=== PATIENT | female | born 2000 | race Caucasian/White ===

== ENCOUNTER → 2018-09-10 | Outpatient (CLI) | payer OTHER ==
--- NOTE | 2018-09-10 18:35 | US ---
EXAMINATION TYPE: Ultrasound OB <= 14 week fetus DATE OF EXAM: 09/10/2018 2:58 PM COMPARISON: NONE CLINICAL HISTORY: 18-year-old female Z36 Confirm Dates. Confirm Dates, pt has no complaints at this t kortney EXAM PERFORMED: Transabdominal (TA) FINDINGS: EXAM MEASUREMENTS: GESTATIONAL AGE / DATING Physician Established: (12 weeks/3 days) EDC: 03/22/2019 Dates by LMP: (12 weeks/3 days) EDC: 03/22/2019 Dates by First Scan: No prior Dates by Current Scan for: (12 weeks/1 days +/- 1 week 1 day) EDC: 03/24/2019 MATERNAL ANATOMY Uterus: 13.4 x 5.3 x 9.1 Right Ovary: 3.5 x 2.4 x 2.3 cm Left Ovary: 3.3 x 1.9 x 2.0 cm Post CDS / Adnexa: wnl Presence of free fluid: No Presence of subchorionic bleed: No GESTATION / SURVEY CRL: 5.5 cm (12 weeks/1 days) MSD: wnl Heart Rate: 160 bpm Rhythm: Normal IUP: Viable IUP Signing Teacher notes:Single, viable IUP/ No abnormality visualized at this time IMPRESSION: 1. Single live intrauterine with estimated gestational age of 12 weeks 3 days by LMP. Curre nt ultrasound biometry is concordant (12 weeks 1 day). 2. Complete survey recommended at 18-20 weeks.
== END | disposition home or self-care (01) ==
LOC: RADUSWWP 14:37
PROVIDERS: ATTEND Obstetrics & Gynecology
DX: Z36.9 Encounter for antenatal screening, unspecified (principal); Z3A.12 12 weeks gestation of pregnancy
CPT/HCPCS: 76801

== ENCOUNTER 2018-12-06 05:13 | Emergency (ER) | payer OTHER ==
[2018-12-06 05:30] VITALS: TEMP 97.6
[2018-12-06] MEDS ORDERED: SODIUM CHLORIDE 0.9% 500 ML 500 ML IV STA (07:22)
[2018-12-06] MEDS ORDERED: SODIUM CHLORIDE 0.9% 1,000 ML IV STA (07:24)
--- NOTE | 2018-12-06 07:36 | ED ---
General Adult HPI - General Chief complaint: Shortness of Breath Stated complaint: SOB,vomiting 24 wks preg Time Seen by Provider: 12/06/18 07:06 Source: patient, RN notes reviewed Mode of arrival: ambulatory Limitations: no limitations - History of Present Illness Initial comments: 18-year-old female presents to the emergency department for multiple complaints. Patient is currently a currently 24 weeks . Patient states that she woke up last night and felt off. States she felt like her eyes were crossed and she was a little fuzzy. States she was nauseous and had 1 episode of vomiting. States she also had some shortness of breath with chest tightness. She describes as shortness of breath as well as feeling like she could not get enough air. She did not have any chest pain. She denies cough or fever. States she has not had these symptoms before. Denies any leg swelling or recent travel.patient denies any vaginal bleeding or abdominal pain or cramping. Patient has no other complaints at this time including chest pain, abdominal pain, nausea or vomiting, headache, or visual changes. - Related Data Home Medications Medication Instructions Recorded Confirmed Jyk-Cgnq-Wyhzi Acid 1 cap PO DAILY 12/06/18 12/06/18 [-U Capsule (formulary)] Previous Rx's Medication Instructions Recorded Cephalexin [Keflex] 500 mg PO TID 5 Days #12 cap 12/06/18 Allergies Allergy/AdvReac Type Severity Reaction Status Date / Time No Known Allergies Allergy Verified 12/06/18 05:30 Review of Systems ROS Statement: Those systems with pertinent positive or pertinent negative responses have been documented in the HPI. ROS Other: All systems not noted in ROS Statement are negative. Past Medical History Past Medical History: No Reported History History of Any Multi-Drug Resistant Organisms: None Reported Past Surgical History: Adenoidectomy, Tonsillectomy Past Psychological History: No Psychological Hx Reported Smoking Status: Never smoker Past Alcohol Use History: None Reported Past Drug Use History: None Reported General Exam Limitations: no limitations General appearance: alert, in no apparent distress Head exam: Present: atraumatic, normocephalic, normal inspection Eye exam: Present: normal appearance, PERRL, EOMI. Absent: scleral icterus, conjunctival injection, periorbital swelling ENT exam: Present: normal exam, mucous membranes moist Neck exam: Present: normal inspection, full ROM. Absent: tenderness, meningismus, lymphadenopathy Respiratory exam: Present: normal lung sounds bilaterally. Absent: respiratory distress, wheezes, rales, rhonchi, stridor Cardiovascular Exam: Present: regular rate, normal rhythm, normal heart sounds. Absent: systolic murmur, diastolic murmur, rubs, gallop, clicks GI/Abdominal exam: Present: soft, normal bowel sounds. Absent: distended, guarding, rebound, rigid Neurological exam: Present: alert, oriented X3, CN II-XII intact Psychiatric exam: Present: normal affect, normal mood Course Vital Signs 12/06/18 05:26 Temperature 97.6 F Pulse Rate 76 Respiratory 20 Rate Blood Pressure 132/73 O2 Sat by Pulse 98 Oximetry EKG Findings - EKG Comments: EKG Findings:: Normal sinus rhythm, ventricular rate 65, NH interval 154, QTc 403 Medical Decision Making - Medical Decision Making 18-year-old female currently 24 weeks presents to the emergency department for multiple complaints. Patient states she just felt a little off when she woke up last night. States she was a little fuzzy and dizzy. States she was nauseous and had a 1 episode of vomiting. States she also like she could not get enough air and had some chest tightness. Denies any pain. Denies any headache. On presentation patient is well-appearing. She is resting comfortably. No respiratory distress. Vitals are stable, patient is 90% on room air with a heart rate of 76. Physical exam is unremarkable. EKG shows a normal sinus rhythm with a ventricular rate of 65. CBC and CMP are unremarkable. Troponin negative. Ultrasound of the bilateral lower extremity showed no sonographic evidence for DVT within either lower extremity. Chest x- ray shows no acute cardiopulmonary process. No opacity, pleural effusion or pneumothorax. Urine does show evidence of urinary tract infection with 17 white blood cells. Patient will be treated for this. Patient reevaluated, feeling back to her normal self at this time except for feeling somewhat tired as she has been up since early this morning. Patient requesting discharge home. Patient will be discharged however recommended following up with OB. Recommended return if patient has any worsening shortness of breath or any vaginal bleeding or abdominal pain. - Lab Data Result diagrams: 12/06/18 05:50 12/06/18 05:50 Lab Results 12/06/18 12/06/18 12/06/18 Range/Units 05:50 05:50 05:50 WBC 9.0 (4.0-11.0) k/uL RBC 3.64 L (3.80-5.40) m/uL Hgb 11.9 (11.4-16.0) gm/dL Hct 33.1 L (34.0-46.0) % MCV 90.8 (80.0-100.0) fL MCH 32.6 (25.0-35.0) pg MCHC 35.9 (31.0-37.0) g/dL RDW 13.9 (11.5-15.5) % Plt Count 160 (150-450) k/uL Neutrophils % 74 % Lymphocytes % 18 % Monocytes % 5 % Eosinophils % 1 % Basophils % 0 % Neutrophils # 6.6 (1.3-7.7) k/uL Lymphocytes # 1.6 (1.0-4.8) k/uL Monocytes # 0.5 (0-1.0) k/uL Eosinophils # 0.1 (0-0.7) k/uL Basophils # 0.0 (0-0.2) k/uL PT 9.5 (9.0-12.0) sec INR 0.9 (<1.2) APTT 22.6 (22.0-30.0) sec Sodium 140 (137-145) mmol/L Potassium 3.8 (3.5-5.1) mmol/L Chloride 106 (98-107) mmol/L Carbon Dioxide 23 (22-30) mmol/L Anion Gap 11 mmol/L BUN 8 (7-17) mg/dL Creatinine 0.53 (0.52-1.04) mg/dL Est GFR (CKD-EPI)AfAm >90 (>60 ml/min/1.73 sqM) Est GFR (CKD-EPI)NonAf >90 (>60 ml/min/1.73 sqM) Glucose 80 (74-99) mg/dL Calcium 9.2 (8.4-10.2) mg/dL Magnesium 1.6 (1.6-2.3) mg/dL Total Bilirubin 0.2 (0.2-1.3) mg/dL AST 16 (14-36) U/L ALT 15 (9-52) U/L Alkaline Phosphatase 45 (38-126) U/L Troponin I (0.000-0.034) ng/mL Total Protein 6.3 (6.3-8.2) g/dL Albumin 3.8 (3.5-5.0) g/dL Urine Color Urine Appearance (Clear) Urine pH (5.0-8.0) Ur Specific [place] (1.001-1.035) Urine Protein (Negative) Urine Glucose (UA) (Negative) Urine Ketones (Negative) Urine Blood (Negative) Urine Nitrite (Negative) Urine Bilirubin (Negative) Urine Urobilinogen (<2.0) mg/dL Ur Leukocyte Esterase (Negative) Urine RBC (0-5) /hpf Urine WBC (0-5) /hpf Ur Squamous Epith Cells (0-4) /hpf Urine Bacteria (None) /hpf Urine Mucus (None) /hpf Urine HCG, Qual (Not Detectd) 12/06/18 12/06/18 12/06/18 Range/Units 05:50 05:50 05:50 WBC (4.0-11.0) k/uL RBC (3.80-5.40) m/uL Hgb (11.4-16.0) gm/dL Hct (34.0-46.0) % MCV (80.0-100.0) fL MCH (25.0-35.0) pg MCHC (31.0-37.0) g/dL RDW (11.5-15.5) % Plt Count (150-450) k/uL Neutrophils % % Lymphocytes % % Monocytes % % Eosinophils % % Basophils % % Neutrophils # (1.3-7.7) k/uL Lymphocytes # (1.0-4.8) k/uL Monocytes # (0-1.0) k/uL Eosinophils # (0-0.7) k/uL Basophils # (0-0.2) k/uL PT (9.0-12.0) sec INR (<1.2) APTT (22.0-30.0) sec Sodium (137-145) mmol/L Potassium (3.5-5.1) mmol/L Chloride (98-107) mmol/L Carbon Dioxide (22-30) mmol/L Anion Gap mmol/L BUN (7-17) mg/dL Creatinine (0.52-1.04) mg/dL Est GFR (CKD-EPI)AfAm (>60 ml/min/1.73 sqM) Est GFR (CKD-EPI)NonAf (>60 ml/min/1.73 sqM) Glucose (74-99) mg/dL Calcium (8.4-10.2) mg/dL Magnesium (1.6-2.3) mg/dL Total Bilirubin (0.2-1.3) mg/dL AST (14-36) U/L ALT (9-52) U/L Alkaline Phosphatase (38-126) U/L Troponin I <0.012 (0.000-0.034) ng/mL Total Protein (6.3-8.2) g/dL Albumin (3.5-5.0) g/dL Urine Color Yellow Urine Appearance Clear (Clear) Urine pH 5.5 (5.0-8.0) Ur Specific [place] 1.011 (1.001-1.035) Urine Protein Negative (Negative) Urine Glucose (UA) Negative (Negative) Urine Ketones Negative (Negative) Urine Blood Negative (Negative) Urine Nitrite Negative (Negative) Urine Bilirubin Negative (Negative) Urine Urobilinogen <2.0 (<2.0) mg/dL Ur Leukocyte Esterase Large H (Negative) Urine RBC 3 (0-5) /hpf Urine WBC 17 H (0-5) /hpf Ur Squamous Epith Cells 4 (0-4) /hpf Urine Bacteria Occasional H (None) /hpf Urine Mucus Rare H (None) /hpf Urine HCG, Qual Detected (Not Detectd) Disposition Clinical Impression: Urinary tract infection Disposition: HOME SELF-CARE Condition: Good Instructions (If sedation given, give patient instructions): Urinary Tract Infection in (ED) Additional Instructions: Please take antibiotic as directed. Please follow-up with primary care in 1-2 days. Follow up with [facility] [facility] INSTRUCTOR. Return to the emergency department if you have any worsening symptoms such as continued vomiting, abdominal pain, fevers or any other worsening symptoms. Prescriptions: Cephalexin [Keflex] 500 mg PO TID 5 Days #12 cap Is patient prescribed a controlled substance at d/c from ED?: No Referrals: Amy Lawson DO [Doctor of Osteopathic Medicine] - 1-2 days Marie Person MD [STAFF PHYSICIAN] - 1-2 days Time of Disposition: 08:50
[2018-12-06 07:40] LABS: Basophils % (A) 0 %; Eosinophils # (A) 0.1 k/uL (0-0.7); Eosinophils % (A) 1 %; HCT 33.1 % (34.0-46.0); HGB 11.9 gm/dL (11.4-16.0); Lymphocytes # (A) 1.6 k/uL (1.0-4.8); Lymphocytes % (A) 18 %; MCH 32.6 pg (25.0-35.0); MCHC 35.9 g/dL (31.0-37.0); MCV 90.8 fL (80.0-100.0); Mean Platelet Volume 7.5; Monocytes # (A) 0.5 k/uL (0-1.0); Monocytes % (A) 5 %; Neutrophils # (A) 6.6 k/uL (1.3-7.7); Neutrophils % (A) 74 %; Platelet Count 160 k/uL (150-450); RBC 3.64 m/uL (3.80-5.40); RDW 13.9 % (11.5-15.5)
[2018-12-06 07:53] LABS: ALT 15 U/L (9-52); AST 16 U/L (14-36); African American GFR (CKD) >90 (>60 ml/min/1.73 sqM); Albumin 3.8 g/dL (3.5-5.0); Alkaline Phosphatase 45 U/L (38-126); Anion Gap 11 mmol/L; Blood Urea Nitrogen 8 mg/dL (7-17); Calcium 9.2 mg/dL (8.4-10.2); Carbon Dioxide 23 mmol/L (22-30); Chloride 106 mmol/L (98-107); Glucose 80 mg/dL (74-99); Magnesium 1.6 mg/dL (1.6-2.3); Potassium 3.8 mmol/L (3.5-5.1); Sodium 140 mmol/L (137-145); Total Bilirubin 0.2 mg/dL (0.2-1.3); Total Protein 6.3 g/dL (6.3-8.2)
[2018-12-06 07:56] LABS: INR 0.9 (<1.2); Partial Thromboplastin Time 22.6 sec (22.0-30.0); Prothrombin Time 9.5 sec (9.0-12.0)
--- NOTE | 2018-12-06 08:01 | XR ---
EXAMINATION TYPE: XR chest 2V DATE OF EXAM: 12/06/2018 COMPARISON: NONE HISTORY: Shortness of breath TECHNIQUE: Frontal and lateral views of the chest are obtained. FINDINGS: There is no focal air space opacity, pleural effusion, or pneumothorax seen. The cardiac silhouette size is within normal limits. The osseous structures are intact. IMPRESSION: No acute cardiopulmonary process.
[2018-12-06 08:22] LABS: Appearance,Urine Clear (Clear); Bacteria,Urine Occasional /hpf; Bilirubin,Urine Negative (Negative); Blood,Urine Negative (Negative); Color,Urine Yellow; Glucose,Urine (UA) Negative (Negative); Ketones,Urine Negative (Negative); Leukocyte Esterase,Urine Large (Negative); Mucus,Urine Rare /hpf; Nitrite,Urine Negative (Negative); PH, Urine 5.5 (5.0-8.0); Protein,Urine Negative (Negative); RBC,Urine 3 /hpf (0-5); Specific Gravity,Urine 1.011 (1.001-1.035); Squamous Epithelial Cell,Urine 4 /hpf (0-4); Urobilinogen,Urine <2.0 mg/dL (<2.0); WBC,Urine 17 /hpf (0-5)
--- NOTE | 2018-12-06 08:38 | US ---
EXAMINATION TYPE: US venous doppler duplex LE DATE OF EXAM: 12/06/2018 8:27 AM COMPARISON: NONE CLINICAL HISTORY: SOB. SOB, vomiting, patient is 24 weeks SIDE PERFORMED: Bilateral TECHNIQUE: The lower extremity deep venous system is examined utilizing real time linear array sonog berenice with graded compression, doppler sonography and color-flow sonography. VESSELS IMAGED: External Iliac Vein (EIV) Common Femoral Vein Deep Femoral Vein Greater Saphenous Vein * Femoral Vein Popliteal Vein Small Saphenous Vein * Proximal Calf Veins (* superficial vessels) Grayscale, color doppler, spectral doppler imaging performed of the deep veins of the lower extremiti es. There is normal flow, compressibility, vascular waveforms. Right Leg: Appears negative for DVT Left Leg: Appears negative for DVT IMPRESSION: No sonographic evidence of deep venous thrombosis within either lower extremity.
[2018-12-06 08:50] VITALS: BP 106/63; PULSE 60; RESP 17
== END 2018-12-06 09:16 | disposition home or self-care (01) ==
LOC: EC 05:13
DX: O23.42 Unspecified infection of urinary tract in pregnancy, second trimester (principal); Z3A.24 24 weeks gestation of pregnancy
CPT/HCPCS: 36415; 71046; 80053; 81001; 81025; 83735; 84484; 85025; 85610; 85730; 87086; 93970; 96360; 99285

== ENCOUNTER 2019-03-18 05:57 | Inpatient (IN) | payer BC, OTHER ==
--- NOTE | 2019-03-17 17:36 | P.HPOB ---
History of Present Illness H&P Date: 03/17/19 Chief Complaint: Induction of labor This is a 18-year-old female 1 para 0 with an estimated date of confinement of 03/22/2019, estimated gestational age of 39-3/7 weeks, who presents to labor and delivery for induction of labor. She admits to good movement. She complains of frequent irregular contractions. She complains of pelvic pressure and difficulty sleeping. course has been essentially uncomplicated. labs: GC/Chlamydia/Trichomonas-negative Hepatitis B surface antigen-negative RPR-nonreactive Rubella-immune Blood type-A- Antibody screen-negative HIV-nonreactive Hemoglobin-13.5 Toxoplasma screen-negative Random glucose-74 Quad screen-negative One hour Glucola-92 Group B streptococcus-negative Obstetrical history: . Gynecologic history: No history of sexual transmitted diseases Social history: She is . She works as a crop farm workers. Review of Systems Constitutional: Denies chills, Denies fever Eyes: denies blurred vision, denies pain Ears, nose, mouth and throat: Denies headache, Denies sore throat Cardiovascular: Denies chest pain, Denies shortness of breath Respiratory: Denies cough Gastrointestinal: Reports abdominal pain (Irregular contractions) Genitourinary: Reports pelvic pain, Reports Musculoskeletal: Reports low back pain Integumentary: Denies pruritus, Denies rash Neurological: Denies numbness, Denies weakness Psychiatric: Denies anxiety, Denies depression Past Medical History Past Medical History: No Reported History History of Any Multi-Drug Resistant Organisms: None Reported Past Surgical History: Adenoidectomy, Tonsillectomy Past Psychological History: No Psychological Hx Reported Smoking Status: Never smoker Past Alcohol Use History: None Reported Past Drug Use History: None Reported Medications and Allergies Home Medications Medication Instructions Recorded Confirmed Type Teb-Rnbg-Ounqe Acid 1 cap PO DAILY 12/06/18 12/06/18 History [-U Capsule (formulary)] Allergies Allergy/AdvReac Type Severity Reaction Status Date / Time No Known Allergies Allergy Verified 12/06/18 05:30 Exam Osteopathic Statement: *. No significant issues noted on an osteopathic structural exam other than those noted in the History and Physical/Consult. HEENT: Within normal limits Heart: Regular rate and rhythm Lungs: Clear to auscultation bilaterally Abdomen: Cervix: 1 cm/70%/-1 heart tones: 140s by Doppler Extremities: Negative Homans Assessment and Plan (1) 39 weeks gestation of Status: Acute Code(s): Z3A.39 - 39 WEEKS GESTATION OF SNOMED Code(s): 95449961 Plan: Admission for induction of labor. Expectant management. Epidural anesthesia if desired.
[2019-03-18] MEDS ORDERED: LIDOCAINE 0.5% (PF) 5 MG/ML (50 ML SDV) SQ PRN (06:16)
[2019-03-18] MEDS ORDERED: CARBOPROST TROMETHAMINE 250 MCG/ML 1 ML AMP IM PRN (06:16)
[2019-03-18] MEDS ORDERED: LIDOCAINE 1% 20 ML VIAL (10MG/ML) FOR IV START INTRADERMA PRN (06:16)
[2019-03-18] MEDS ORDERED: OXYTOCIN 10 UNIT/ML 1 ML VIAL IM PRN (06:16)
[2019-03-18] MEDS ORDERED: TERBUTALINE 1 MG/ML VIAL SQ PRN (06:16)
[2019-03-18] MEDS ORDERED: METHYLERGONOVINE 0.2 MG/ML 1 ML AMP IM PRN (06:16)
[2019-03-18] MEDS ORDERED: OXYTOCIN 30 UNITS/500 ML NS 30 UNIT in SALINE 1 500ML.BAG IV SCH (06:16)
[2019-03-18 06:35] VITALS: BMI 24.2
[2019-03-18] MEDS: LACTATED RINGERS 1,000 ML IV SCH ×3 (06:38→18:58)
[2019-03-18 06:55] LABS: Basophils % (A) 0 %; Eosinophils # (A) 0.1 k/uL (0-0.7); Eosinophils % (A) 1 %; HCT 33.2 % (34.0-46.0); HGB 12.3 gm/dL (11.4-16.0); Hyperchromasia Slight; Lymphocytes # (A) 1.8 k/uL (1.0-4.8); Lymphocytes % (A) 22 %; MCH 33.9 pg (25.0-35.0); MCV 91.6 fL (80.0-100.0); Mean Platelet Volume 6.5; Monocytes # (A) 0.5 k/uL (0-1.0); Monocytes % (A) 6 %; Neutrophils # (A) 5.6 k/uL (1.3-7.7); Neutrophils % (A) 69 %; Platelet Count 160 k/uL (150-450); RBC 3.63 m/uL (3.80-5.40); RDW 13.1 % (11.5-15.5); WBC 8.2 k/uL (4.0-11.0)
[2019-03-18] MEDS: BUTORPHANOL 1 MG/ML 1 ML VIAL IV PRN ×3 (11:49→17:43)
[2019-03-18] MEDS ORDERED: SODIUM CHLORIDE 0.9% 100 ML BAG ONE (19:05)
[2019-03-18] MEDS ORDERED: ROPIVACAINE 5MG/ML 20ML VIAL ONE (19:05)
[2019-03-18] MEDS ORDERED: fentaNYL (PF) 50 MCG/ML 5 ML AMP ONE (19:05)
--- NOTE | 2019-03-19 01:26 | P.PROBDLV ---
Vaginal Delivery Note - . Vaginal Delivery Note: The patient progressed to complete dilation after oxytocin induction of labor. She did receive several doses of Stadol followed by an epidural. Once reaching complete, she began pushing. She pushed for just over an hour and infant's head came to a crown. With one further push, the infant's head delivered across the perineum in a right occiput anterior lie. She attempted to push one further push to release the shoulder and when the shoulder did not release with one push I had her stop pushing. I was able to place a gloved hand in front of the left anterior shoulder and gently turning it in a counterclockwise fashion. Once the shoulder was released, I had her push one further push and the shoulder did release around the pubic bone. The whole process took less than 10 seconds. Nose and mouth were bulb suctioned and then with one further push the remainder the delivered and was placed on mother's abdomen. Cord was clamped and cut and infant was taken to warmer for evaluation. A small amount of terminal meconium was noted. A viable female was noted with scores of 9 at 1 minute and 9 at 5 minutes and infant weight was 7 pounds 6.9 ounces. Placenta delivered shortly thereafter, intact, with a three-vessel cord. Uterus contr acted fairly well after oxytocin was given and uterine massage was carried out. Inspection of the perineum revealed no perineal lacerations. She did have a couple of small bilateral periurethral abrasions. These were noted to be hemostatic. Estimated blood loss is approximately 150 mL. Mother is in stable condition. is moving all extremities and no abnormalities are palpated on the clavicles. Patient and her family were advised that she did have a mild shoulder dystocia and I explained the steps that I took to release the shoulder. She was advised that she may want to consider section with her next .
[2019-03-19] MEDS ORDERED: diphenhydrAMINE 50 MG/ML 1 ML VIAL IVP PRN ×2 (02:07)
[2019-03-19] MEDS ORDERED: diphenhydrAMINE 25 MG CAP PO PRN (02:07)
[2019-03-19] MEDS ORDERED: WITCH HAZEL 1 EACH MED..PAD TOPICAL PRN (02:07)
[2019-03-19] MEDS ORDERED: ACETAMINOPHEN TAB 325 MG TAB PO PRN (02:07)
[2019-03-19] MEDS ORDERED: HYDROCORTISONE 2.5% RECTAL CREAM 30 GM TUBE RECTAL PRN (02:07)
[2019-03-19] MEDS ORDERED: LANOLIN CREAM 5 GM TUBE TOPICAL PRN (02:07)
[2019-03-19] MEDS ORDERED: OXYTOCIN 20 UNITS/1000 ML NS 1,000 ML IV SCH (02:07)
[2019-03-19] MEDS ORDERED: SIMETHICONE 80 MG CHEWABLE PO PRN (02:07)
[2019-03-19] MEDS ORDERED: BENZOCAINE/MENTHOL SPRAY 1 GM/SPRAY AEROSOL TOPICAL PRN (02:07)
[2019-03-19] MEDS ORDERED: diphenhydrAMINE 50 MG CAP PO PRN (02:07)
[2019-03-19] MEDS ORDERED: ZOLPIDEM 5 MG TAB PO PRN (02:07)
[2019-03-19] MEDS: IBUPROFEN 600 MG TAB PO PRN ×3 (05:53→20:25)
[2019-03-19 08:17] LABS: Basophils # (A) 0.1 k/uL (0-0.2); Basophils % (A) 0 %; Eosinophils % (A) 0 %; HCT 29.6 % (34.0-46.0); HGB 10.6 gm/dL (11.4-16.0); Lymphocytes % (A) 6 %; MCH 33.2 pg (25.0-35.0); MCHC 35.8 g/dL (31.0-37.0); MCV 92.8 fL (80.0-100.0); Mean Platelet Volume 6.8; Monocytes # (A) 0.9 k/uL (0-1.0); Monocytes % (A) 5 %; Neutrophils # (A) 14.8 k/uL (1.3-7.7); Neutrophils % (A) 88 %; Platelet Count 149 k/uL (150-450); RBC 3.19 m/uL (3.80-5.40); RDW 13.1 % (11.5-15.5); WBC 16.8 k/uL (4.0-11.0)
--- NOTE | 2019-03-19 08:45 | P.PNOBGVD ---
Subjective - Subjective Principal diagnosis: Status post vaginal delivery day #0 Interval history: Patient is doing well. She is ambulating. Lochia is decreasing. She is working on breast-feeding. Pain is fairly well controlled. Patient reports: Reports appetite normal, Reports voiding normally, Reports pain well controlled, Reports ambulating normally [place]: doing well Objective - Latest Vital Signs Latest vital signs: Vital Signs Temp Pulse Resp BP 03/19/19 07:52 98 F 64 15 112/56 03/19/19 03:31 98.2 F 77 16 132/60 03/19/19 03:01 98.0 F 86 16 122/65 03/19/19 02:31 98.5 F 90 16 129/57 03/19/19 02:16 98.4 F 82 16 140/72 03/19/19 02:01 98.4 F 93 16 125/62 03/19/19 01:46 98.9 F 90 16 120/78 03/19/19 01:31 99.1 F 98 16 126/91 Intake and Output 03/18/19 03/19/19 03/19/19 22:59 06:59 14:59 Output Total 250 Balance -250 Output: Urine 250 Other: # Voids 1 - Exam Extremities: Present: normal. Absent: edema Abdomen: Present: normal appearance, soft. Absent: distention, tenderness Uterus: Present: normal, firm. Absent: tenderness - Labs Labs: Abnormal Lab Results - Last 24 Hours (Table) 03/19/19 Range/Units 07:32 WBC 16.8 H (4.0-11.0) k/uL RBC 3.19 L (3.80-5.40) m/uL Hgb 10.6 L (11.4-16.0) gm/dL Hct 29.6 L (34.0-46.0) % Plt Count 149 L (150-450) k/uL Neutrophils # 14.8 H (1.3-7.7) k/uL Assessment and Plan Assessment: Status post vaginal delivery day #0 (1) 39 weeks gestation of Current Visit: No Status: Acute Code(s): Z3A.39 - 39 WEEKS GESTATION OF SNOMED Code(s): 22189334 Plan: We'll continue with care today. Will work on breast-feeding today.
[2019-03-19] MEDS: SENNOSIDES-DOCUSATE SODIUM 1 EACH TAB PO SCH ×3 (13:31→20:24)
[2019-03-19] MEDS ORDERED: Rhogam IMMUNE GLOBULIN 1,500 UNIT/1 ML IM ONE (13:32)
[2019-03-20] MEDS: IBUPROFEN 600 MG TAB PO PRN ×3 (05:26→18:24)
--- NOTE | 2019-03-20 08:57 | P.PNOBGVD ---
Subjective - Subjective Principal diagnosis: Status post vaginal delivery day #1 Interval history: Patient is doing well. She is breast-feeding well. Lochia is decreasing. Pain is fairly well controlled. Bartender request the baby stay one more night. Patient reports: Reports appetite normal, Reports voiding normally, Reports pain well controlled, Reports ambulating normally : doing well, nursing well Objective - Latest Vital Signs Latest vital signs: Vital Signs Temp Pulse Resp BP 03/20/19 04:00 98.9 F 70 16 104/69 03/19/19 20:00 98.2 F 69 16 131/77 03/19/19 16:00 97.6 F 67 15 132/79 03/19/19 12:00 97.6 F 67 16 132/79 - Exam Extremities: Present: normal Abdomen: Present: normal appearance, soft. Absent: distention, tenderness Uterus: Present: normal, firm. Absent: tenderness Assessment and Plan Assessment: Status post vaginal delivery day #1 (1) 39 weeks gestation of Current Visit: No Status: Acute Code(s): Z3A.39 - 39 WEEKS GESTATION OF SNOMED Code(s): 53511885 Plan: Continue with care. Anticipate discharge home tomorrow.
[2019-03-20] MEDS: SENNOSIDES-DOCUSATE SODIUM 1 EACH TAB PO SCH ×2 (13:05→19:42)
[2019-03-20] MEDS ORDERED: DIPH,PERTUS(ACELL)TETVAC-LF 0.5 ML VIAL IM ONE (15:33)
[2019-03-21] MEDS: IBUPROFEN 600 MG TAB PO PRN ×2 (01:36→09:03)
[2019-03-21 08:21] VITALS: BP 123/71; PULSE 66; RESP 16; TEMP 98
--- NOTE | 2019-03-21 09:03 | P.DS ---
Providers Date of admission: 03/18/19 05:57 Expected date of discharge: 03/21/19 Attending physician: Amy Lawson Primary care physician: Stated None - Discharge Diagnosis(es) (1) 39 weeks gestation of Current Visit: No Status: Acute Hospital Course: This is a 18-year-old female 1 para 0 at 39-3/7 weeks who presented for induction of labor. She underwent oxytocin induction of labor and delivered vaginally a viable female on 03/19/2019 with scores of 9 at 1 minute and 9 at 5 minutes and weight is 7 pounds 6.9 ounces. The delivery was completed by mild shoulder dystocia. Her course has been uncomplicated. Lochia is decreasing. She is breast-feeding well. Pain is well-controlled. Eitel signs are stable. Abdomen is soft with fundus firm and nontender. Extremities show negative Homans. Impression is status post vaginal delivery day #2. Plan is to discharge home today. Routine instructions are given. She will be given a prescription for ibuprofen. She states she does have a breast pump at home. He is advised to call the office if she has any further questions or concerns prior to her appointment time. She is advised follow-up in the office in 6 weeks for check. Procedures: Oxytocin induction of labor Spontaneous vaginal delivery of a viable female on 03/19/2019 Patient Condition at Discharge: Stable Plan - Discharge Summary New Discharge Prescriptions: New Ibuprofen [Motrin] 600 mg PO Q6HR PRN #60 tab PRN Reason: Mild Pain Or Fever >= 100.5 Continue Fac-Oitt-Uhfor Acid [-U Capsule (formulary)] 1 cap PO DAILY Discharge Medication List Trs-Epos-Gsydu Acid [-U Capsule (formulary)] 1 cap PO DAILY 12/06/18 [History] Ibuprofen [Motrin] 600 mg PO Q6HR PRN #60 tab 03/21/19 [Rx] Follow up Appointment(s)/Referral(s): Amy Lawson DO [Doctor of Osteopathic Medicine] - 6 Weeks Activity/Diet/Wound Care/Special Instructions: Instructions 1. Do not begin any exercise program for 3 weeks. 2. Do not resume sexual relations for 3 weeks or longer if uncomfortable. 3. You may take tub baths or showers at any time. 4. You may use tampons if desired after 3 weeks. 5. Keep the area of episiotomy (stitches) clean and dry. 6. If you are not nursing, wear a good fitting, supportive bra during the day and limit fluid intake for at least 1 week to prevent breast engorgement. 7. Call the office, [phone], within the next week to make appointment for your 6 week checkup if it has not already been made. 8. Report any of the following occurrences to the doctor promptly: a. Heavy, excessive bleeding b. Chills, fever c. Burning or frequency of urination d. Pain or redness and breasts if nursing e. Increasing pain or swelling in episiotomy (stitches). In addition to the above instructions, the following additional should be followed: 1. No heavy lifting or straining (exercising) until after 6 week checkup. 2. Keep abdominal incision clean and dry: You may wear a dressing if more comfortable. 3. Make office appointment for 10 days after going home or as instructed by her doctor. Discharge Disposition: HOME SELF-CARE
[2019-03-21] MEDS: SENNOSIDES-DOCUSATE SODIUM 1 EACH TAB PO SCH (09:04)
== END 2019-03-21 12:00 | disposition home or self-care (01) | DRG 807 ==
LOC: 4FBP 05:57
PROVIDERS: ADMIT Obstetrics & Gynecology; ATTEND Obstetrics & Gynecology
PROC: 3E0R3NZ Introduction of Analgesics, Hypnotics, Sedatives into Spinal Canal, Percutaneous Approach (ICD-10-PCS; principal; 2019-03-19)
PROC: 10E0XZZ Delivery of Products of Conception, External Approach (ICD-10-PCS; principal; 2019-03-19)
PROC: 3E033VJ Introduction of Other Hormone into Peripheral Vein, Percutaneous Approach (ICD-10-PCS; principal; 2019-03-19)
PROC: 10907ZC Drainage of Amniotic Fluid, Therapeutic from Products of Conception, Via Natural or Artificial Opening (ICD-10-PCS; principal; 2019-03-19)
PROC: 00HU33Z Insertion of Infusion Device into Spinal Canal, Percutaneous Approach (ICD-10-PCS; principal; 2019-03-19)
DX: O66.0 Obstructed labor due to shoulder dystocia (principal); Z37.0 Single live birth; O77.0 Labor and delivery complicated by meconium in amniotic fluid; Z3A.39 39 weeks gestation of pregnancy
CPT/HCPCS: 85025; 85461; 86850; 86870; 86880; 86900; 86901; 90471; 90715